=== PATIENT | male | born 1970 | race Caucasian/White ===

== ENCOUNTER 2017-01-01 01:04 | Emergency (ER) | payer MEDICAID ==
[~2017-01-01] VITALS: Ht 180.3 cm; Wt 112.0 kg
[~2017-01-01 01:04] MED LIST: KEFLEX 500MG.500 MG PO; LISINOPRIL40 MG PO; MEDROL 4MG. DOSE4 MG PO
[2017-01-01] MEDS ORDERED: ALEVE220 MG PO (01:19)
--- OUTSIDE RECORDS SUMMARY | 2017-01-01 01:26 | External Medical Summary Rpt ---
Demographics Preferred Language Kyrgyz Marital Status Unknown Samaritan Affiliation Unknown Race Unknown Ethnic Group Unknown Author Author ELENI Address Unknown Phone Immunization No patient found.
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
--- OUTSIDE RECORDS SUMMARY | 2017-01-01 01:26 | External Medical Summary Rpt ---
Demographics Preferred Language Armenian Marital Status Unknown Hoahaoism Affiliation Unknown Race Unknown Ethnic Group Unknown Author Author ELENI Address Unknown Phone Immunization No patient found.
--- OUTSIDE RECORDS SUMMARY | 2017-01-01 01:26 | External Medical Summary Rpt ---
Author Author CANDE Healy, CANDE Production Organization [facility]DE Production Address Unknown Phone Unavailable
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
--- NOTE | 2017-01-01 02:44 | Emergency Room Report ---
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 N Clinical Suspician of Infection? N Mental Status: 1 - Regular (Normal Baseline) Sepsis Risk:Low Sepsis Risk Have you (or family members/close friends) recently traveled outside the [place]? N If Yes, where/when: Have you had exposure to infectious disease within the past month? TB? Other? Specify: Source patient, RN notes reviewed, family, old records Exam Limitations no limitations Comment lower back pain with pain with moving with no cauda equina sx and no fever or rash Cardiac Chest Pain Chest pain indicative of cardiac No Timing/Duration this evening Severity moderate ALLERGIES Coded Allergies: MDX - Amoxicillin (AMOXICILLIN) (01/14/11) Home Medications Reported Medications Lisinopril (Lisinopril 40MG) 20 PO DAILY Naproxen Sodium (Aleve) 220 MG PO PRN PRN PAIN History Medical History General CAD? No Angina: No IA: No Hypertension? Yes Hyperlipidemia? No CHF? No DVT? No PE? No COPD? No Asthma? Yes Anemia? No GERD? No Gastric ulcers? No GI Bleed? No Hernia? No Thyroid Problems? No Hypothyroidism? No CVA? No Seizures? No Diabetes? No Renal Insuffiency? No End Stage Renal Disease? No UTI? No Stones? Yes BPH? No GB Disease: No Nephritic Syndrome? No Asplenia? No Hepatitis? No Arthritis? No Migraines? No Cataracts? No Glaucoma? No MRSA? No HIV? No TB? No Anxiety? No Depression? No Cancer? No More? Yes Additional hx: HEMOPHYLIAC Immunization Hx DT/Tetanus 01/19/2012 Surgical Hx Previous Surgery?Y TONSILLECTOMY SURGERY ON HEAD Social History Smoking Hx Smoker: Never Smoker Tobacco: No Packs/day 1 1/2 - 2 Packs Alcohol Alcohol: No Drugs none Review of Systems All Other Systems Reviewed and Negative Constitutional denies fever Eyes denies drainage ENT denies: ear pain, epistaxis, throat pain. Respiratory denies cough, denies shortness of breath, denies wheezing Cardiovascular denies chest pain, denies palpitations, denies syncope Gastrointestinal denies abdominal pain, denies diarrhea, denies vomiting Genitourinary denies: dysuria, frequency, hesitancy, hematuria. Musculoskeletal see HPI, back pain, denies joint pain, denies joint swelling, denies neck pain Skin denies rash Psychiatric/Neurological denies headache, denies seizure Physical Exam Vital Signs Vital Signs Date Time Temp Pulse Resp B/P Pulse O2 O2 Flow FiO2 Ox Delivery Rate 01/01 0229 49 16 124/67 97 01/01 0109 97.8 97 18 128/74 94 - WBC >12,000 or <4,000 or 10% bands? 2 or more SIRS Criteria Met? B/P:124/67 MAP:92 Creatinine >2.0? UA output<0.5ml/kg/hr for 2 hrs? Platelet count >100,000? Lactate >2.0mmol/1? INR >1.2 or PTT > than 60 sec? Evidence of Organ Dysfunction? Provider documented clinical suspician of infection? N Sepsis Criteria Count: 1 Sepsis Risk: Low Sepsis Risk General Appearance no apparent distress Eye Exam - bilateral eye PERRL, bilateral eye EOMI Ear, Nose, Throat normal ENT inspection Neck supple Respiratory Status No: respiratory distress. 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 No Results/Orders Orders Procedure Date/time Status LUMBAR SPINE 5 VIEWS 01/01 0122 Active XRAY/CT/US XRAY/CT/US XRAY L-spine XR interpretation by reviewed by me Xray Results no fracture seen Departure Departure Time of Disposition 0243 Disposition DC Home or Self Care(routine) Clinical Impression Primary Impression: Acute lumbar myofascial strain Qualifiers: Encounter type: initial encounter Qualified Code: S39.012A - Strain of muscle, fascia and tendon of lower back, initial encounter Condition STABLE Referrals Wilton Tello MD (Family) Patient Instructions DI for Low Back Pain Additional Instructions heat alt with ice and use meds and see pcp for follow up Discharge Counseling Counseled pt/family regarding diagnosis, test results, medications/RX, follow up needs Prescriptions Current Visit Scripts Prednisone (Prednisone 20MG) 20 MG PO BID #10 TAB Cyclobenzaprine Hcl (Flexeril) 10 MG PO BID #10 TAB ED Critical Care Critical Care No at 0256
[2017-01-01] MEDS ORDERED: PREDNISONE 20MG20 MG PO (02:55)
[2017-01-01] MEDS ORDERED: FLEXERIL10 MG PO (02:55)
[2017-01-01 03:21] VITALS: BP 125/75
--- NOTE | 2017-01-01 07:45 | RADIOLOGY REPORT PS360 ---
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 No fracture or dislocation. No lytic or blastic change. Mild degenerative disc disease L3-L4 and L5-S1. Small endplate osteophytes L4-L5 IMPRESSION: 1. No acute fracture. 2. Lumbar spondylosis with degenerative disc disease
== END 2017-01-01 03:27 | disposition home or self-care (01) ==
LOC: ER 01:04
DX: S39.012A Strain of muscle, fascia and tendon of lower back, initial encounter (principal); I10 Essential (primary) hypertension; Z72.0 Tobacco use